=== PATIENT | male | born 1955 | race Caucasian/White ===

== ENCOUNTER 2018-01-04 09:40 | Day surgery (SDC) | payer OTHER ==
[2018-01-04] MEDS ORDERED: SOD CHLORIDE 0.9% 500 ML IV (11:00)
[2018-01-04] MEDS: hydrALAzine 20 MG INJ IV (11:17)
[2018-01-04 11:27] LABS: POTASSIUM 4.7 mmol/L (3.5-5.1)
[2018-01-04] MEDS ORDERED: hydrALAzine 20 MG INJ IV ×2 (11:30→14:00)
[2018-01-04] MEDS ORDERED: LIDOCAINE 1% (MPF) 30 ML INJ (11:51)
[2018-01-04] MEDS ORDERED: GELATIN SIZE 100 SPONGE (11:51)
[2018-01-04] MEDS ORDERED: THROMBIN 5000 UNIT VIAL (11:52)
[2018-01-04] MEDS ORDERED: HEPARIN 1000 UNITS/ML 10 ML INJ (11:52)
[2018-01-04] MEDS: LIDOCAINE 1% (MPF) 30 ML INJ INJ (12:00)
[2018-01-04] MEDS: HEPARIN 1000 UNITS/ML 10 ML INJ IRR (12:00)
[2018-01-04] MEDS ORDERED: PROPOFOL 20 ML ×3 (12:12→13:15)
[2018-01-04] MEDS ORDERED: FENTAnyl 50 MCG/ML VIAL (12:12)
[2018-01-04] MEDS ORDERED: MIDAZOLAM 1 MG/ML 2 ML INJ (12:12)
[2018-01-04] MEDS ORDERED: LIDOCAINE 1% (MDV) 20 ML INJ (12:13)
[2018-01-04] MEDS ORDERED: CEFAZOLIN 1 GM INJ ×2 (12:52→13:15)
[2018-01-04] MEDS ORDERED: HYDROmorphONE 1 MG/5 ML IV SYRINGE IV (14:00)
[2018-01-04] MEDS ORDERED: ONDANSETRON 4 MG INJ IV (14:00)
[2018-01-04] MEDS ORDERED: LABETALOL HCL 20MG INJ IV (14:00)
[2018-01-04] MEDS ORDERED: FENTAnyl 50 MCG/ML VIAL IV ×2 (14:00)
[2018-01-04] MEDS: OXYCODONE/ACETAMINOPHEN (5/325) TAB PO (14:57)
== END 2018-01-04 15:30 | disposition home or self-care (01) ==
LOC: SDS 09:40
DX: I12.0 Hypertensive chronic kidney disease with stage 5 chronic kidney disease or end stage renal disease (principal); E11.22 Type 2 diabetes mellitus with diabetic chronic kidney disease; N18.6 End stage renal disease; Z99.2 Dependence on renal dialysis
CPT/HCPCS: 36821; 84132